=== PATIENT | female | born 1950 | race Caucasian/White ===

== ENCOUNTER 2016-11-25 08:40 | Outpatient (CLI) ==
[2016-05-17 20:41] VITALS: BMI 27.8
[2016-11-25 09:00] LABS: BASOPHILS # (AUTO) 0.1 K/uL (0-0.2); BASOPHILS % (AUTO) 0.7 % (0.0-3.0); EOSINOPHILS # (AUTO) 0.2 K/ul (0.0-0.7); EOSINOPHILS % (AUTO) 2.7 % (0.0-7.0); HEMOGLOBIN 14.9 g/dl (12.0-16.0); IMMATURE GRANULOCYTE % (AUTO) 0.2 % (0.0-5.0); LYMPHOCYTES # (AUTO) 3.5 K/uL (0.60-3.4); LYMPHOCYTES % (AUTO) 43.2 (10.0-50.0); MEAN CORPUSCULAR HEMOGLOBIN 30.5 pg (27.0-31.0); MEAN CORPUSCULAR HGB CONC 33.1 (31.8-35.4); MEAN CORPUSCULAR VOLUME 92.2 fl (81.0-99.0); MONOCYTES # (AUTO) 0.5 K/uL (0.4-2.0); NEUTROPHILS # (AUTO) 3.8 K/ul (2.0-6.9); NEUTROPHILS % (AUTO) 47.2; PLATELET COUNT 215 10^3/uL (140-440); RED BLOOD COUNT 4.88 10^6/ul (4.20-5.40); WHITE BLOOD COUNT 8.03 K/ul (4.6-10.2)
[2016-11-25 09:21] LABS: ALBUMIN 3.7 g/dL (3.4-5.0); ANION GAP 15.9; BILIRUBIN,TOTAL 0.68 mg/dL (0.00-1.20); BUN/CREATININE RATIO 13.51; CALCIUM 9.3 mg/dL (8.2-10.2); CHOL/HDL RATIO 7.9 (4.5-5.5); CREATININE 1.11 mg/dL (0.60-1.30); POTASSIUM 4.9 mmol/L (3.5-5.10); TOTAL PROTEIN 7.4 g/dL (5.8-8.1); URIC ACID 9.6 mg/dL (2.4-6.0)
== END 2016-11-25 08:41 | disposition home or self-care (01) ==
LOC: LAB 08:40
PROVIDERS: ATTEND Physician Assistant
DX: B35.1 Tinea unguium (principal); E78.2 Mixed hyperlipidemia; I10 Essential (primary) hypertension; M25.571 Pain in right ankle and joints of right foot
CPT/HCPCS: 36415; 80053; 80061; 84550; 85025

== ENCOUNTER 2017-02-07 11:52 | Outpatient (CLI) ==
[2016-05-17 20:41] VITALS: BMI 27.8
--- NOTE | 2017-02-07 12:46 | DI ---
EXAM: Two views of the chest. History: Chest pain. Comparison: Chest radiograph 05/17/2016 Findings: Heart size is within normal limits. No definite acute infiltrates. No appreciable pleur al fluid and no pneumothorax. Calcified granulomas again seen within the thorax. No acute osseous abnormalities. Impression: No acute cardiopulmonary process.
== END 2017-02-07 11:53 | disposition home or self-care (01) ==
LOC: CAR 11:52
PROVIDERS: ATTEND Nurse Practitioner Family
DX: R07.89 Other chest pain (principal)
CPT/HCPCS: 93005; 93010

== ENCOUNTER 2017-02-20 08:17 | Outpatient (CLI) ==
[2016-05-17 20:41] VITALS: BMI 27.8
--- NOTE | 2017-02-20 08:53 | DI ---
EXAM: Two views of the chest. History: Chronic obstructive pulmonary disease Comparison: Chest radiograph 02/07/2017 Findings: Heart size is borderline enlarged. No focal consolidation. No appreciable pleural fluid and no pneumothorax. Calcified granulomas again seen within the thorax. No acute osseous abnormal ities. Impression: No acute cardiopulmonary process. No change compared to the prior study.
--- NOTE | 2017-02-20 09:52 | US ---
EXAM: ULTRASOUND CAROTID DUPLEX, BILATERAL HISTORY: Dizziness FINDINGS: Griffin-scale ultrasound, color Doppler and spectral analysis was performed. Velocities are in meters per second. By griffin scale and color Doppler imaging, there were regions of heterogeneous plaque formation identi fied within the carotid bulbs and internal carotid arteries. These regions of plaque appeared to re main less than 50% vessel diameter. RIGHT: External carotid artery peak systolic velocity: 0.9 Common carotid artery peak systolic velocity/end diastolic velocity: 0.6/0.1 Internal carotid artery peak systolic velocity: 0.9 ICA/CCA peak systolic velocity ratio: 1.6 ICA end diastolic velocity: 0.3 LEFT: External carotid artery peak systolic velocity: 1.0 Common carotid artery peak systolic velocity/end diastolic velocity: 0.7/0.2 Internal carotid artery peak systolic velocity: 0.8 ICA/CCA peak systolic velocity ratio: 1.2 ICA end diastolic velocity: 2.2 The right and left vertebral arteries were antegrade. IMPRESSION: 1. By griffin scale and color Doppler imaging, there were regions of heterogeneous plaque formation id entified within the carotid bulbs and internal carotid arteries. These regions of plaque appeared t o remain less than 50% vessel diameter. 2. Internal carotid artery peak systolic velocities and ICA/CCA peak systolic velocity ratios indic ate no hemodynamically significant stenosis bilaterally. 3. Both vertebral arteries were antegrade.
== END 2017-02-20 08:18 | disposition home or self-care (01) ==
LOC: RAD 08:17
PROVIDERS: ATTEND Internal Medicine
DX: R42 Dizziness and giddiness (principal); R07.9 Chest pain, unspecified; R06.02 Shortness of breath; J44.9 Chronic obstructive pulmonary disease, unspecified; I65.29 Occlusion and stenosis of unspecified carotid artery

== ENCOUNTER 2017-02-24 06:47 | Outpatient (CLI) ==
[2016-05-17 20:41] VITALS: BMI 27.8
--- NOTE | 2017-02-24 12:23 | ECHO2D ---
Date of Exam: 02/24/17 Ordering Physician: SHAHEEN GUILLEN Reason for Echo: SOB, COPD, CHEST PAIN M-Mode Normal Adult Results LV Dimensions Normal Adult Results AoV Opening excursions >1.6 >1.6 LVEDD-base- 3.5-5.8 4.3 Ao root dimensions 2.0-3.7 3.8 LVESD-base- 3.1-4.6 L. Atrium dimensions 1.9-3.8 3.2 Post. Wall thickness 0.8-1.1 1.2 IV septum (thickness) 0.7-1.2 1.1 Post. Wall excursion 0.72-1.3 NORMAL Septal motion NORMAL Systolic motion R. Ventricular cavity 1.5-2.0 NORMAL LVEF 60% 57% Paradoxical septal wall motion NORMAL 2-D : 2-D M Mode Echocardiogram was performed using apical four chamber and left parasternal long and short axis views. Mitral, tricuspid and aortic valves appear to be normal. Contractility of the left ventricle seems to be normal, so is the cavity size. Left atrial cavity size and aortic root appear to be normal. There is no pericardial effusion. There is no thrombus noted in the left ventricular or left aortic cavity. No mitral valve prolapse noted. Mitral Valve Prolapse noticed. M-MODE: MV: MAYBE MVP AV: NORMAL TV: NORMAL PV: CHAMBER SIZE: NORMAL WALL MOTION: NORMAL PERICARDIUM: NORMAL INTERPRETATION: 1. NORMAL 2 "D" "M" MODE ECHO MTDD
== END 2017-02-24 06:48 | disposition home or self-care (01) ==
LOC: CAR 06:47
PROVIDERS: ATTEND Internal Medicine
DX: R07.9 Chest pain, unspecified (principal); R06.02 Shortness of breath; J44.9 Chronic obstructive pulmonary disease, unspecified

== ENCOUNTER 2017-02-26 06:46 | Outpatient (CLI) ==
[2016-05-17 20:41] VITALS: BMI 27.8
--- NOTE | 2017-02-26 10:38 | MODSTECHO ---
Ordering Physician: SHAHEEN SHAW Date of Test: 02/26/17 Medical History: CHEST PAIN, SOB, COPD Current Medications: LORAZEPAM, MELOXICAM, SIMVASTATIN, ASA, FUROSEMIDE, OMEPRAZOLE, HYDROCODONE/ACETAMINOPHEN Resting EKG: SINUS RHYTHM/NO ACUTE CHANGES Target Heart Rate: 130/153 STAGE MPH/GRADE HEART RATE BPM BLOOD PRESSURE mmhg RHYTHM S-T SEGMENT UP DOWN SYMPTOMS,COMMENTS At Rest 100 118/70 SR X NONE 1 1.7/0% 122 136/60 SR X NONE 2 1.7/5% 3 1.7/10% 4 2.5/12% 5 3.4/14% 6 4.2/16% 7 5.18% Immediately after 133 SR X NONE Total Time: 7:00 Maximum Heart Rate Reached: 133 3 MINUTES POST EXERCISE: HR 100 BPM, BP 138/76 MMHG INTERPRETATION: 94% OXYGEN SATURATION WITH EXERCISE ON ROOM AIR METS 4.6 1. NO EVIDENCE OF ISCHEMIA BY ST-T WAVE 2. NO CHEST PAIN OR CHEST DISCOMFORT 3. BLOOD PRESSURE RESPONSE: NORMAL 4. NO ARRHYTHMIAS NORMAL LEFT VENTRICULAR CONTRACTILITY--RESTING AND POST EXERCISE MTDD
--- NOTE | 2017-02-26 10:42 | ECHOSTRESS ---
Date of Exam: 02/26/17 Ordering Physician: SHAHEEN GUILLEN Reason for Echo: CHEST PAIN, SOB, COPD, STRESS TEST--NO ISCHEMIA M-Mode Normal Adult Results LV Dimensions Normal Adult Results AoV Opening excursions >1.6 LVEDD-base- 3.5-5.8 Ao root dimensions 2.0-3.7 LVESD-base- 3.1-4.6 L. Atrium dimensions 1.9-3.8 Post. Wall thickness 0.8-1.1 IV septum (thickness) 0.7-1.2 Post. Wall excursion 0.72-1.3 Septal motion Systolic motion R. Ventricular cavity 1.5-2.0 LVEF 60% Paradoxical septal wall motion 2-D: NORMAL LEFT VENTRICULAR CONTRACTILITY--RESTING AND POST EXERCISE M-MODE: MV: AV: TV: PV: CHAMBER SIZE: WALL MOTION: NORMAL LEFT VENTRICULAR CONTRACTILITY--RESTING AND POST EXERCISE PERICARDIUM: INTERPRETATION: 1. NORMAL LEFT VENTRICULAR CONTRACTILITY--RESTING AND POST EXERCISE MTDD
== END 2017-02-26 06:47 | disposition home or self-care (01) ==
LOC: CAR 06:46
PROVIDERS: ATTEND Internal Medicine
DX: R06.02 Shortness of breath (principal); R07.9 Chest pain, unspecified; J44.9 Chronic obstructive pulmonary disease, unspecified

== ENCOUNTER 2017-08-26 09:44 | Outpatient (CLI) ==
[2016-05-17 20:41] VITALS: BMI 27.8
--- NOTE | 2017-08-26 11:06 | DI ---
EXAM: Three views of the cervical spine HISTORY: Neck arthropathy. COMPARISON: None FINDINGS: There is no acute compression fracture or subluxation. There is no lytic or blastic lesion . Facets and posterior processes are unremarkable. The odontoid process is unremarkable. The soft t issues are unremarkable. IMPRESSION: No acute abnormality of the cervical spine.
--- NOTE | 2017-08-26 11:28 | DI ---
EXAM: Lumbar spine three views HISTORY: Spinal stenosis. FINDINGS: No comparison. There is mild scoliosis convex to the right. Sacroiliac joints are within normal limits. Moderate facet arthropathy lower lumbar spine and lumbosacral junction. Diffuse mil d to moderate degenerative endplate changes. No loss of vertebral body height or acute fracture is i dentified. No definite spondylolisthesis. Vascular calcifications are noted. IMPRESSION: Mild to moderate degenerative changes of the spine. Mild scoliosis.
--- NOTE | 2017-08-26 11:59 | DEXA ---
EXAM: BONE DENSITOMETRY HISTORY: Screening for osteoporosis. Post menopausal FINDINGS: Exam of the lumbar spine demonstrated a total bone mineral density of 1.185 g/cm2. T score is -0.1. Age-matched Z score is 1.1. Exam of the hips revealed a total mean bone mineral density of 0.052 g/cm2. Mean hip T score: 0.4 Mean hip age-matched Z score: 0.4 FRAX WHO Fracture Risk Assessment. Ten year probability of fracture (%). Major Osteoporotic Fracture 24.3% Hip Fracture 6.4%. IMPRESSION: 1. Values presented indicate normal bone density of the spine. 2. Values presented indicate normal bone density of the hips.
--- NOTE | 2017-08-27 17:47 | MRI ---
EXAM: Lumbar spine MRI without contrast. HISTORY: Lumbar spinal stenosis. COMPARISON: Lumbar spine radiographs 08/26/2017 and chest radiographs 02/07/2017. TECHNIQUE: Multiplanar, multisequence MR images were acquired lumbar spine without contrast. FINDINGS: Transitional spinal anatomy is present. Small ribs are present bilaterally at T12. The fi rst [id number] vertebra is numbered L1. L5 is a transitional vertebra with partial bilateral sa cralization and a small intervertebral disc. There is mild thoracolumbar scoliosis, convex right at L1-2 and convex left at L3-4. The lumbar vertebra are generally normal in height and intrinsic bone marrow signal. There is mild chronic anterior wedging of the T11 vertebra that may be developmental. Small ventral lateral osteophytes are present of the lumbar spine. There is minor disc space narro wing disc desiccation and L3-4 and mild disc space narrowing disc desiccation with vacuum phenomenon at L4-5. A small intervertebral disc is present at L5-S1. Conus medullaris ends at L1-2 and has nor mal signal intensity. 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 The partially visualized liver, spleen, adrenal glands and kidneys are unremarkable. There are no pa ravertebral masses. T12-L1: There is a mild disc bulge, endplate irregularity with small chronic Schmorl's nodes along t he T12 inferior endplate and a probable small superimposed central disc protrusion. This minimally e ffaces the ventral thecal sac without central canal stenosis. Minor bilateral facet arthropathy and mild ligamentum flavum hypertrophy is present. There is minor left neural foraminal stenosis. L1-2: There is a mild disc bulge that is asymmetric to the left that may encroach on the left L1 ner ve exiting the neural foramen. Mild bilateral hypertrophic facet arthropathy and ligamentum flavum h ypertrophy is present and there is mild left neural foraminal stenosis. L2-3: There is a mild disc bulge and mild to moderate bilateral facet and ligamentum flavum hypertro phy. This causes mild right neural foraminal stenosis. L3-4: There is a mild to moderate diffuse disc bulge and moderate bilateral facet and ligamentum fla vum hypertrophy. This causes mild to moderate central canal stenosis and mild bilateral foraminal st enosis, greater on the left. AP diameter of the thecal sac is 7.1 mm. L4-5: There is a mild disc bulge and small central disc extrusion with inferior migration. Moderate right and mild left hypertrophic facet arthropathy and moderate bilateral ligamentum flavum hypertro phy is present. These findings cause moderate central canal stenosis and mild right and minor left ne ural foraminal stenosis. AP diameter of the thecal sac is 6 mm. L5-S1: There is a small intervertebral disc. Facet joints are hypoplastic. There is no central can al stenosis or foraminal stenosis. IMPRESSION: 1. Mild lumbar degenerative spondylosis and mild to moderate facet arthropathy. 2. Mild to moderate L3-4 and moderate L4-5 central canal stenosis. 3. Small central disc extrusion L4-5. 4. Transitional lumbar spinal anatomy.
== END 2017-08-26 09:45 | disposition home or self-care (01) ==
LOC: RAD 09:44
PROVIDERS: ATTEND Pain Medicine Interventional Pain Medicine
DX: M51.26 Other intervertebral disc displacement, lumbar region (principal); M47.812 Spondylosis without myelopathy or radiculopathy, cervical region; M47.813 Spondylosis without myelopathy or radiculopathy, cervicothoracic region; M50.31 Other cervical disc degeneration, high cervical region; M50.321 Other cervical disc degeneration at C4-C5 level; M50.322 Other cervical disc degeneration at C5-C6 level; M50.323 Other cervical disc degeneration at C6-C7 level; M51.36 Other intervertebral disc degeneration, lumbar region; M81.0 Age-related osteoporosis without current pathological fracture; M48.061 Spinal stenosis, lumbar region without neurogenic claudication; Z78.0 Asymptomatic menopausal state

== ENCOUNTER 2018-03-18 08:49 | Outpatient (CLI) ==
[2016-05-17 20:41] VITALS: BMI 27.8
--- NOTE | 2018-03-18 09:32 | DI ---
EXAM: Two views of the chest. History: Cough. Comparison: Chest radiograph 02/20/2017 Findings: Heart is borderline enlarged. No focal consolidation. No appreciable pleural fluid and n o pneumothorax. Calcified granulomas again seen within the thorax. No acute osseous abnormalities. Atherosclerotic vascular calcifications. Cholecystectomy clips. Impression: No acute cardiopulmonary process. No change compared to the prior study
--- NOTE | 2018-03-18 11:53 | MAMMO ---
EXAM: Bilateral digital screening mammogram (2-D and 3-D) History: Screening Comparison: None available. Technique: MLO and CC views of bilateral breasts demonstrate scattered fibroglandular breast parench yma. CAD was reviewed by the radiologist. Tomosynthesis was performed. There are no dominant masses , no suspicious microcalcifications and no architectural distortions Impression: Negative mammogram. Recommend followup routine screening mammography in 1 year. BIRADS 2
== END 2018-03-18 08:50 | disposition home or self-care (01) ==
LOC: RAD 08:49
PROVIDERS: ATTEND Internal Medicine
DX: Z12.31 Encounter for screening mammogram for malignant neoplasm of breast (principal); J44.9 Chronic obstructive pulmonary disease, unspecified; F17.210 Nicotine dependence, cigarettes, uncomplicated
CPT/HCPCS: 77067